=== PATIENT | male | born 1995 | race African-American/Black ===

== ENCOUNTER 2020-09-13 13:10 | Emergency (ER) | payer OTHER ==
[~2020-09-13] VITALS: Ht 182.9 cm; Wt 81.8 kg
[2020-09-13] MEDS ORDERED: NS 1,000 ML IV ONE (13:35)
--- NOTE | 2020-09-13 13:59 | REP ---
INDICATION: CP. COMPARISON: None. TECHNIQUE: Upright portable chest x-ray. FINDINGS: The lungs are well inflated and clear. The pleural angles are sharp. Heart size is normal. Pulmonary vasculature is not increased. EKG monitoring electrodes are seen. No significant bony abnormality. IMPRESSION: No active disease. <Electronically signed by José Miguel Omer > 09/13/20 [id number]
[2020-09-13 14:46] LABS: HEMATOCRIT 43.5 % (42.0-52.0); HEMOGLOBIN 13.6 g/dl (13.5-17.5); MEAN CORPUSCULAR HEMOGLOBIN 27.6 pg (27.0-33.0); MEAN CORPUSCULAR HGB CONC 31.3 g/dl (32.0-36.5); MEAN CORPUSCULAR VOLUME 88.2 fl (80.0-96.0); PLATELET COUNT, AUTOMATED 174 10^3/uL (150-450); RED BLOOD COUNT 4.93 10^6/uL (4.30-6.10); WHITE BLOOD COUNT 3.4 10^3/uL (4.0-10.0)
[2020-09-13 15:07] LABS: BLOOD UREA NITROGEN 12 MG/DL (7-18); CARBON DIOXIDE LEVEL 28 MEQ/L (21-32); CHLORIDE LEVEL 109 MEQ/L (98-107); CREATININE FOR GFR 1.29 MG/DL (0.70-1.30); GLOMERULAR FILTRATION RATE > 60.0 (>60); GLUCOSE, FASTING 85 MG/DL (70-100); POTASSIUM SERUM 3.8 MEQ/L (3.5-5.1); SODIUM LEVEL 141 MEQ/L (136-145)
[2020-09-13 15:50] VITALS: BP 142/77
--- NOTE | 2020-09-13 20:39 | ECGEPIP ---
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
== END 2020-09-13 15:57 | disposition home or self-care (01) ==
LOC: EDBD 13:10 → M ED 13:10
DX: R00.1 Bradycardia, unspecified (principal); I49.3 Ventricular premature depolarization

== ENCOUNTER → 2021-10-20 | Outpatient (CLI) | payer OTHER | LOC: M LAB 14:39 | PROVIDERS: ATTEND Physician Assistant | DX: R21 Rash and other nonspecific skin eruption (principal) | CPT/HCPCS: 36415; 86780; G0463 ==